=== PATIENT | male | born 1980 | race Hispanic/Latino ===

== ENCOUNTER 2017-03-27 08:24 | Emergency (ER) | payer MEDICARE ==
[2017-03-27] MEDS ORDERED: NACL 0.9% 1000 ML 1,000 ML IV ONE (08:43)
[2017-03-27 09:15] LABS: Eosinophils % (Auto) 5.4 % (0.0-4.3); Hematocrit 41.6 % (35.5-45.6); Hemoglobin 14.2 gm/dl (11.8-15.2); Mean Corpuscular HGB Conc 34 % (32-34); Mean Corpuscular Hemoglobin 32 pg (28-32); Mean Corpuscular Volume 95 fl (84-94); Platelet Count 268 K/mm3 (140-440); Red Blood Count 4.37 M/mm3 (3.65-5.03); Red Cell Distribution Width 13.3 % (13.2-15.2); White Blood Count 8.5 K/mm3 (4.5-11.0)
[2017-03-27 09:23] LABS: Anion Gap 20 mmol/L; BUN/Creatinine Ratio 33; Blood Urea Nitrogen 23 mg/dL (9-20); Calcium 8.6 mg/dL (8.4-10.2); Carbon Dioxide 20 mmol/L (22-30); Chloride 101.8 mmol/L (98-107); Glucose 118 mg/dL (75-100); Potassium 4.4 mmol/L (3.6-5.0); Sodium 137 mmol/L (137-145)
[2017-03-27 10:14] LABS: Bilirubin,Urine NEG (Negative); Blood,Urine NEG (Negative); Ketones,Urine NEG (Negative); Leukocyte Esterase,Urine NEG (Negative); Mucus,Urine FEW /HPF; Nitrite,Urine NEG (Negative); Protein,Urine <15 mg/dL mg/dL (Negative); Urobilinogen,Urine < 2.0 mg/dL (<2.0)
[2017-03-27 10:19] LABS: INR 0.91 (0.87-1.13)
[2017-03-27 10:20] LABS: Partial Thromboplastin Time 31.4 Sec. (24.2-36.6)
[2017-03-27] MEDS ORDERED: ZOFRAN IV ONE (11:17)
[2017-03-27] MEDS ORDERED: TYLENOL PO ONE (11:18)
[2017-03-27] MEDS ORDERED: CARAFATE PO ONE (11:18)
--- NOTE | 2017-03-27 11:18 | Emergency Department Report ---
ED General Adult HPI - General Chief complaint: Nausea/Vomiting/Diarrhea Stated complaint: FLU LIKE SYMPTOMS Time Seen by Provider: 03/27/17 11:06 Source: patient, RN notes reviewed Mode of arrival: Ambulatory Limitations: No Limitations - History of Present Illness Initial comments: This is a 36-year-old male. The patient is previously unknown to this provider , and he goes to the [facility]. Patient presents to the ER with 2 nights of coughing or vomiting of black liquid. He is not sure what it is. It is occasionally tinged with red. Patient denies bright red blood per rectum or melena. Patient admits to a little bit of abdominal discomfort. There is no chest pain. There is no shortness of breath. His symptoms are constant, they do not radiate anywhere, exacerbating or relieving factors. Contrary to what is documented in nursing notes, the patient did not complain of chest pain to me whatsoever. In addition, I do not recommend a rectal temperature. -: Gradual, days(s) Consistency: constant Improves with: none Worsens with: none Associated Symptoms: cough, fever/chills, loss of appetite, malaise, weakness. denies: confusion, chest pain, diaphoresis, shortness of breath - Related Data Home Medications Medication Instructions Recorded Confirmed Last Taken AtorvaSTATin [Lipitor] 10 mg PO QHS 03/27/17 03/27/17 03/27/17 Diphenhydramine HCl [Nighttime 50 mg PO QHS PRN 03/27/17 03/27/17 03/27/17 Sleep Aid 50MG] FLUoxetine HCL [Fluoxetine HCl] 40 mg PO QDAY 03/27/17 03/27/17 03/27/17 Gabapentin [Neurontin] 400 mg PO Q8HR 03/27/17 03/27/17 03/27/17 Ibuprofen 800 mg PO QDAY 03/27/17 03/27/17 03/27/17 Meloxicam 15 mg PO QDAY 03/27/17 03/27/17 03/27/17 Sherwood-3 Fatty Acids [Sherwood-3] 100 mg PO TID 03/27/17 03/27/17 03/27/17 Prazosin [Minipress] 1 mg PO TID 03/27/17 03/27/17 03/27/17 traZODone [Desyrel] 50 mg PO QHS 03/27/17 03/27/17 03/27/17 Previous Rx's Medication Instructions Recorded Last Taken Type Dicyclomine [Bentyl] 10 mg PO QID PRN #20 capsule 03/27/17 Unknown Rx Famotidine [Pepcid] 20 mg PO QDAY #30 tablet 03/27/17 Unknown Rx Ondansetron [Zofran Odt] 4 mg PO Q8HR PRN #20 tab.rapdis 03/27/17 Unknown Rx Allergies Allergy/AdvReac Type Severity Reaction Status Date / Time iodine AdvReac Hives Verified 03/27/17 08:33 ED Review of Systems ROS: Stated complaint: FLU LIKE SYMPTOMS Other details as noted in HPI Constitutional: malaise Eyes: denies: vision change ENT: denies: epistaxis Respiratory: denies: wheezing Cardiovascular: denies: chest pain Gastrointestinal: denies: melena, hematochezia Musculoskeletal: arthralgia, myalgia Neurological: weakness ED Past Medical Hx - Past Medical History Previous Medical History?: Yes - Surgical History Past Surgical History?: Yes Additional Surgical History: Left Hip, Right Hip, Right knee, Right arm/hand - Social History Smoking Status: Current Every Day Smoker Substance Use Type: Alcohol, Cocaine, Heroin, Marijuana, Non Opiate Pain, Prescribed, Tranquilizers, Methamphetamines, Other - Medications Home Medications: Home Medications Medication Instructions Recorded Confirmed Last Taken Type AtorvaSTATin [Lipitor] 10 mg PO QHS 03/27/17 03/27/17 03/27/17 History Dicyclomine [Bentyl] 10 mg PO QID PRN #20 capsule 03/27/17 Unknown Rx Diphenhydramine HCl [Nighttime 50 mg PO QHS PRN 03/27/17 03/27/17 03/27/17 History Sleep Aid 50MG] FLUoxetine HCL [Fluoxetine HCl] 40 mg PO QDAY 03/27/17 03/27/17 03/27/17 History Famotidine [Pepcid] 20 mg PO QDAY #30 tablet 03/27/17 Unknown Rx Gabapentin [Neurontin] 400 mg PO Q8HR 03/27/17 03/27/17 03/27/17 History Ibuprofen 800 mg PO QDAY 03/27/17 03/27/17 03/27/17 History Meloxicam 15 mg PO QDAY 03/27/17 03/27/1703/27/17 History Sherwood-3 Fatty Acids [Sherwood-3] 100 mg PO TID 03/27/17 03/27/17 03/27/17 History Ondansetron [Zofran Odt] 4 mg PO Q8HR PRN #20 tab.rapdis 03/27/17 Unknown Rx Prazosin [Minipress] 1 mg PO TID 03/27/17 03/27/17 03/27/17 History traZODone [Desyrel] 50 mg PO QHS 03/27/17 03/27/17 03/27/17 History ED Physical Exam - General Limitations: No Limitations General appearance: alert, anxious - Head Head exam: Present: atraumatic, normocephalic - Eye Eye exam: Present: normal appearance, EOMI. Absent: nystagmus - ENT ENT exam: Present: normal exam, normal orophraynx, mucous membranes moist, normal external ear exam - Neck Neck exam: Present: normal inspection, full ROM - Respiratory Respiratory exam: Present: normal lung sounds bilaterally. Absent: respiratory distress - Cardiovascular Cardiovascular Exam: Present: regular rate, normal rhythm, normal heart sounds. Absent: systolic murmur, diastolic murmur, rubs, gallop - GI/Abdominal GI/Abdominal exam: Present: soft, tenderness, normal bowel sounds. Absent: distended, guarding, rebound, rigid, pulsatile mass - Rectal Rectal exam: Present: normal inspection, normal rectal tone, heme (-) stool - Extremities Exam Extremities exam: Present: normal inspection, full ROM, normal capillary refill. Absent: pedal edema, joint swelling, calf tenderness - Back Exam Back exam: Present: normal inspection, full ROM. Absent: tenderness, CVA tenderness (R), paraspinal tenderness, vertebral tenderness - Neurological Exam Neurological exam: Present: alert, oriented X3, normal gait, other (Extraocular movements intact. Tongue midline. No facial droop. Facial sensation intact to light touch in the V1, V2, V3 distribution bilaterally. 5 and 5 strength in 4 extremities.. Sensation is intact to light touch in 4 extremities.). Absent : motor sensory deficit - Psychiatric Psychiatric exam: Present: normal affect, normal mood, anxious - Skin Skin exam: Present: warm, dry, intact, normal color. Absent: rash ED Course Vital Signs 03/27/17 03/27/17 03/27/17 08:28 11:46 11:47 Temperature 99.4 F 99.1 F Pulse Rate 104 H 84 Respiratory 22 20 20 Rate Blood Pressure 108/81 Blood Pressure 166/68 [Right] O2 Sat by Pulse 94 95 95 Oximetry ED Medical Decision Making - Lab Data Result diagrams: 03/27/17 08:39 03/27/17 08:39 Vital Signs 03/27/17 03/27/17 03/27/17 08:28 11:46 11:47 Temperature 99.4 F 99.1 F Pulse Rate 104 H 84 Respiratory 22 20 20 Rate Blood Pressure 108/81 Blood Pressure 166/68 [Right] O2 Sat by Pulse 94 95 95 Oximetry Lab Results 03/27/17 03/27/17 03/27/17 Range/Units 08:39 08:39 09:13 WBC 8.5 (4.5-11.0) K/mm3 RBC 4.37 (3.65-5.03) M/mm3 Hgb 14.2 (11.8-15.2) gm/dl Hct 41.6 (35.5-45.6) % MCV 95 H (84-94) fl MCH 32 (28-32) pg MCHC 34 (32-34) % RDW 13.3 (13.2-15.2) % Plt Count 268 (140-440) K/mm3 Lymph % (Auto) 16.0 (13.4-35.0) % Jay % (Auto) 9.4 H (0.0-7.3) % Eos % (Auto) 5.4 H (0.0-4.3) % Baso % (Auto) 1.0 (0.0-1.8) % Lymph # 1.4 (1.2-5.4) K/mm3 Jay # 0.8 (0.0-0.8) K/mm3 Eos # 0.5 H (0.0-0.4) K/mm3 Baso # 0.1 (0.0-0.1) K/mm3 Seg Neutrophils % 68.2 (40.0-70.0) % Seg Neutrophils # 5.8 (1.8-7.7) K/mm3 PT 12.7 (12.2-14.9) Sec. INR 0.91 (0.87-1.13) APTT 31.4 (24.2-36.6) Sec. Sodium 137 (137-145) mmol/L Potassium 4.4 (3.6-5.0) mmol/L Chloride 101.8 (98-107) mmol/L Carbon Dioxide 20 L (22-30) mmol/L Anion Gap 20 mmol/L BUN 23 H (9-20) mg/dL Creatinine 0.7 L (0.8-1.5) mg/dL Estimated GFR > 60 ml/min BUN/Creatinine Ratio 33 % Glucose 118 H (75-100) mg/dL Calcium 8.6 (8.4-10.2) mg/dL Lipase (13-60) units/L Urine Color (Yellow) Urine Turbidity (Clear) Urine pH (5.0-7.0) Ur Specific [place] (1.003-1.030) Urine Protein (Negative) mg/dL Urine Glucose (UA) (Negative) mg/dL Urine Ketones (Negative) mg/dL Urine Blood (Negative) Urine Nitrite (Negative) Urine Bilirubin (Negative) Urine Urobilinogen (<2.0) mg/dL Ur Leukocyte Esterase (Negative) Urine WBC (Auto) (0.0-6.0) /HPF Urine RBC (Auto) (0.0-6.0) /HPF Urine Mucus /HPF Blood Type Antibody Screen 03/27/17 03/27/17 03/27/17 Range/Units 09:13 09:13 09:59 WBC (4.5-11.0) K/mm3 RBC (3.65-5.03) M/mm3 Hgb (11.8-15.2) gm/dl Hct (35.5-45.6) % MCV (84-94) fl MCH (28-32) pg MCHC (32-34) % RDW (13.2-15.2) % Plt Count (140-440) K/mm3 Lymph % (Auto) (13.4-35.0) % Jay % (Auto) (0.0-7.3) % Eos % (Auto) (0.0-4.3) % Baso % (Auto) (0.0-1.8) % Lymph # (1.2-5.4) K/mm3 Jay # (0.0-0.8) K/mm3 Eos # (0.0-0.4) K/mm3 Baso # (0.0-0.1) K/mm3 Seg Neutrophils % (40.0-70.0) % Seg Neutrophils # (1.8-7.7) K/mm3 PT (12.2-14.9) Sec. INR (0.87-1.13) APTT (24.2-36.6) Sec. Sodium (137-145) mmol/L Potassium (3.6-5.0) mmol/L Chloride (98-107) mmol/L Carbon Dioxide (22-30) mmol/L Anion Gap mmol/L BUN (9-20) mg/dL Creatinine (0.8-1.5) mg/dL Estimated GFR ml/min BUN/Creatinine Ratio % Glucose (75-100) mg/dL Calcium (8.4-10.2) mg/dL Lipase 77 H (13-60) units/L Urine Color Yellow (Yellow) Urine Turbidity Clear (Clear) Urine pH 5.0 (5.0-7.0) Ur Specific [place] 1.026 (1.003-1.030) Urine Protein <15 mg/dl (Negative) mg/dL Urine Glucose (UA) Neg (Negative) mg/dL Urine Ketones Neg (Negative) mg/dL Urine Blood Neg (Negative) Urine Nitrite Neg (Negative) Urine Bilirubin Neg (Negative) Urine Urobilinogen < 2.0 (<2.0) mg/dL Ur Leukocyte Esterase Neg (Negative) Urine WBC (Auto) 1.0 (0.0-6.0) /HPF Urine RBC (Auto) 4.0 (0.0-6.0) /HPF Urine Mucus Few /HPF Blood Type A POSITIVE Antibody Screen Negative - EKG Data -: EKG Interpreted by Ny - EKG Data 03/27/17 14:52 Normal sinus, 88 bpm, normal intervals, normal axis, not morphologically consistent with ST elevation myocardial infarction - Radiology Data Radiology results: report reviewed, image reviewed X-ray the chest is negative CT scan of the abdomen and pelvis is negative for acute findings - Medical Decision Making Differential diagnosis, including but not limited to: Bronchitis, bronchiectasis , pneumonia, GI bleed, intra-abdominal infection Assessment and plan: 36-year-old male with a complaint of malaise, coughing or vomiting of black liquid, he is not sure if he is coughing or vomiting it up. To me, the patient does not endorse chest pain. His abdomen was minimally tender, with no rebound, guarding or peritoneal signs, he was found to be guaiac negative on rectal examination. Hemoglobin and hematocrit unremarkable, x-ray of the chest is negative. CT scan of the abdomen and pelvis negative, x-ray of the chest is negative as well. Patient is able to tolerate liquid feeds without difficulty, he does not appear to be an emergent condition at this time, the patient will be started on pain medication, nausea medication, he can follow up with outpatient gastroenterology. Return precautions are reviewed. Critical care attestation.: If time is entered above; I have spent that time in minutes in the direct care of this critically ill patient, excluding procedure time. ED Disposition Clinical Impression: General medical exam Disposition: DC-01 TO HOME OR SELFCARE Is pt being admited?: No Does the pt Need Aspirin: No Condition: Stable Instructions: Acute Nausea and Vomiting (ED) Additional Instructions: Take the medications as directed. Avoid consumption of alcohol, spicy foods, ibuprofen, Motrin, aspirin, Naprosyn, Aleve. Follow up with a health care legal assistant, stomach doctor within the next [address] Segura is a local stomach doctor. Continue your current outpatient medications, and follow- up with primary care doctor within the next month. Return to the ER right away with new pain, worsened pain, migration of pain, fevers, chills, lethargy, irritability, projectile vomiting, change in mental status, inability to tolerate liquid feeds, vomiting blood, defecating blood. Referrals: PRIMARY CARE, [Primary Care Provider] - 3-5 Days BEBO CACERES MD [Staff Physician] - 3-5 Days LALY SEGURA MD [Staff Physician] - 3-5 Days
[2017-03-27 11:47] VITALS: BP 166/68
[2017-03-27] MEDS ORDERED: PROTONIX IV ONE (12:00)
--- NOTE | 2017-03-27 12:38 | XRay Report ---
CHEST TWO VIEWS: 03/27/17 08:24:00 CLINICAL: Hematemesis or hemoptysis. COMPARISON: None FINDINGS: Normal heart and pulmonary vasculature. The lungs are normally expanded and clear. No pulmonary nodule or mass. No airspace disease or pleural effusion. Degenerative changes in the spine. IMPRESSION: No acute cardiopulmonary process and no pulmonary nodule or mass.
--- NOTE | 2017-03-27 14:16 | Cat Scan Report ---
CT of the abdomen and pelvis with IV contrast. History: Abdominal pain, nausea and vomiting. Findings: The liver, spleen, and pancreas are normal. A single calcified gallstone is noted. The wall of gallbladder is not thickened. There is no biliary dilatation. An isolated 7 mm calcification in the left kidney on initial nephrogram phase may be vascular. There is no hydronephrosis. 3 tiny subcentimeter cysts are seen in the left kidney. No right renal abnormalities are seen. There is no adenopathy within the retroperitoneum. No mesenteric inflammation or abnormal fluid collections are seen. The appendix is normal. A right hip prosthesis is noted. Impression: 1. Single gallstone with no evidence of cholecystitis. 2. Small left renal cysts. A single calcification the left kidney is probably vascular, but I cannot exclude a small intrarenal stone. There is no hydronephrosis.
== END 2017-03-27 15:15 | disposition home or self-care (01) ==
LOC: ED 08:24
DX: R05 Cough (principal); R11.10 Vomiting, unspecified; R10.9 Unspecified abdominal pain; F14.10 Cocaine abuse, uncomplicated; F12.10 Cannabis abuse, uncomplicated; F15.10 Other stimulant abuse, uncomplicated; F11.10 Opioid abuse, uncomplicated; F17.200 Nicotine dependence, unspecified, uncomplicated; Z88.8 Allergy status to other drugs, medicaments and biological substances
CPT/HCPCS: 36415; 71020; 74177; 80048; 81001; 82271; 83690; 85025; 85610; 85730; 86850; 86900; 86901; 93005; 93010; 96361; 96374; 96375; 99285; C9113; J2405; J7030; Q9967

== ENCOUNTER 2017-05-02 16:58 | Emergency (ER) | payer MEDICARE ==
[2017-05-02 17:08] VITALS: BP 122/78
--- NOTE | 2017-05-02 20:51 | Emergency Department Report ---
- General Chief complaint: Skin/Abscess/Foreign Body Stated complaint: KNOT IN GROIN Time Seen by Provider: 05/02/17 20:06 Source: patient Mode of arrival: Ambulatory Limitations: No Limitations - History of Present Illness Initial comments: This is a 36-year-old male nontoxic, well nourished in appearance, no acute signs of distress presents to the ED with c/o of left groin region swelling with drainage. Patient stated yesterday he noticed swelling to the region and this morning he saw purulent drainage. Patient denies any testicular pain, swelling, numbness, tingling, fever, chills, headache, stiff neck, nausea, vomiting, chest pain, shortness of breathe, abdominal pain or pelvic pain. Patient denies any trauma. States allergies to iodine. Patient denies significant PMH. MD complaint: abscess/boil Location: genitals Severity: mild Severity scale (0 -10): 8 Quality: aching Consistency: constant Improves with: none Worsens with: none Context: none Associated symptoms: denies other symptoms Treatments Prior to Arrival: none - Related Data Home Medications Medication Instructions Recorded Confirmed Last Taken AtorvaSTATin [Lipitor] 10 mg PO QHS 03/27/17 03/27/17 03/27/17 Diphenhydramine HCl [Nighttime 50 mg PO QHS PRN 03/27/17 03/27/17 03/27/17 Sleep Aid 50MG] FLUoxetine HCL [Fluoxetine HCl] 40 mg PO QDAY 03/27/17 03/27/17 03/27/17 Gabapentin [Neurontin] 400 mg PO Q8HR 03/27/17 03/27/17 03/27/17 Ibuprofen 800 mg PO QDAY 03/27/17 03/27/17 03/27/17 Meloxicam 15 mg PO QDAY 03/27/17 03/27/17 03/27/17 Coleman-3 Fatty Acids [Coleman-3] 100 mg PO TID 03/27/17 03/27/17 03/27/17 Prazosin [Minipress] 1 mg PO TID 03/27/17 03/27/17 03/27/17 traZODone [Desyrel] 50 mg PO QHS 03/27/17 03/27/17 03/27/17 Previous Rx's Medication Instructions Recorded Last Taken Type Dicyclomine [Bentyl] 10 mg PO QID PRN #20 capsule 03/27/17 Unknown Rx Famotidine [Pepcid] 20 mg PO QDAY #30 tablet 03/27/17 Unknown Rx Ondansetron [Zofran Odt] 4 mg PO Q8HR PRN #20 tab.rapdis 03/27/17 Unknown Rx Doxycycline [Vibramycin CAP] 100 mg PO Q12HR #14 capsule 05/02/17 Unknown Rx Ibuprofen [Motrin] 600 mg PO Q8H PRN #30 tablet 05/02/17 Unknown Rx Sulfamethoxazole/Trimethoprim 1 each PO BID #14 tablet 05/02/17 Unknown Rx [Bactrim DS TAB] Allergies Allergy/AdvReac Type Severity Reaction Status Date / Time iodine AdvReac Hives Verified 03/27/17 08:33 Abscess Boil HPI - HPI Chief Complaint: Skin/Abscess/Foreign Body Stated Complaint: KNOT IN GROIN Time Seen by Provider: 05/02/17 20:06 Home Medications: Home Medications Medication Instructions Recorded Confirmed Last Taken AtorvaSTATin [Lipitor] 10 mg PO QHS 03/27/17 03/27/17 03/27/17 Diphenhydramine HCl [Nighttime 50 mg PO QHS PRN 03/27/17 03/27/17 03/27/17 Sleep Aid 50MG] FLUoxetine HCL [Fluoxetine HCl] 40 mg PO QDAY 03/27/17 03/27/17 03/27/17 Gabapentin [Neurontin] 400 mg PO Q8HR 03/27/17 03/27/17 03/27/17 Ibuprofen 800 mg PO QDAY 03/27/17 03/27/17 03/27/17 Meloxicam 15 mg PO QDAY 03/27/17 03/27/17 03/27/17 Coleman-3 Fatty Acids [Coleman-3] 100 mg PO TID 03/27/17 03/27/17 03/27/17 Prazosin [Minipress] 1 mg PO TID 03/27/17 03/27/17 03/27/17 traZODone [Desyrel] 50 mg PO QHS 03/27/17 03/27/17 03/27/17 Previous Rx's Medication Instructions Recorded Last Taken Type Dicyclomine [Bentyl] 10 mg PO QID PRN #20 capsule 03/27/17 Unknown Rx Famotidine [Pepcid] 20 mg PO QDAY #30 tablet 03/27/17 Unknown Rx Ondansetron [Zofran Odt] 4 mg PO Q8HR PRN #20 tab.rapdis 03/27/17 Unknown Rx Doxycycline [Vibramycin CAP] 100 mg PO Q12HR #14 capsule 05/02/17 Unknown Rx Ibuprofen [Motrin] 600 mg PO Q8H PRN #30 tablet 05/02/17 Unknown Rx Sulfamethoxazole/Trimethoprim 1 each PO BID #14 tablet 05/02/17 Unknown Rx [Bactrim DS TAB] Allergies/Adverse Reactions: Allergies Allergy/AdvReac Type Severity Reaction Status Date / Time iodine AdvReac Hives Verified 03/27/17 08:33 ED Review of Systems ROS: Stated complaint: KNOT IN GROIN Other details as noted in HPI Constitutional: denies: chills, fever Eyes: denies: eye pain, eye discharge, vision change ENT: denies: ear pain, throat pain Respiratory: denies: cough, shortness of breath, wheezing Cardiovascular: denies: chest pain, palpitations Endocrine: no symptoms reported Gastrointestinal: denies: abdominal pain, nausea, diarrhea Genitourinary: denies: urgency, dysuria Musculoskeletal: denies: back pain, joint swelling, arthralgia Skin: denies: rash, lesions Neurological: denies: headache, weakness, paresthesias Psychiatric: denies: anxiety, depression Hematological/Lymphatic: denies: easy bleeding, easy bruising ED Past Medical Hx - Past Medical History Hx Psychiatric Treatment: Yes (depression) Additional medical history: elevated cholesterol,neuropathy - Surgical History Additional Surgical History: Left Hip, Right Hip, Right knee, Right arm/hand - Social History Smoking Status: Current Every Day Smoker Substance Use Type: None - Medications Home Medications: Home Medications Medication Instructions Recorded Confirmed Last Taken Type AtorvaSTATin [Lipitor] 10 mg PO QHS 03/27/17 03/27/17 03/27/17 History Dicyclomine [Bentyl] 10 mg PO QID PRN #20 capsule 03/27/17 Unknown Rx Diphenhydramine HCl [Nighttime 50 mg PO QHS PRN 03/27/17 03/27/17 03/27/17 History Sleep Aid 50MG] FLUoxetine HCL [Fluoxetine HCl] 40 mg PO QDAY 03/27/17 03/27/17 03/27/17 History Famotidine [Pepcid] 20 mg PO QDAY #30 tablet 03/27/17 Unknown Rx Gabapentin [Neurontin] 400 mg PO Q8HR 03/27/17 03/27/17 03/27/17 History Ibuprofen 800 mg PO QDAY 03/27/17 03/27/17 03/27/17 History Meloxicam 15 mg PO QDAY 03/27/17 03/27/17 03/27/17 History Coleman-3 Fatty Acids [Coleman-3] 100 mg PO TID 03/27/17 03/27/17 03/27/17 History Ondansetron [Zofran Odt] 4 mg PO Q8HR PRN #20 tab.rapdis 03/27/17 Unknown Rx Prazosin [Minipress] 1 mg PO TID 03/27/17 03/27/17 03/27/17 History traZODone [Desyrel] 50 mg PO QHS 03/27/17 03/27/17 03/27/17 History Doxycycline [Vibramycin CAP] 100 mg PO Q12HR #14 capsule 05/02/17 Unknown Rx Ibuprofen [Motrin] 600 mg PO Q8H PRN #30 tablet 05/02/17 Unknown Rx Sulfamethoxazole/Trimethoprim 1 each PO BID #14 tablet 05/02/17 Unknown Rx [Bactrim DS TAB] ED Physical Exam - General Limitations: No Limitations General appearance: alert, in no apparent distress - Head Head exam: Present: atraumatic, normocephalic - Eye Eye exam: Present: normal appearance - ENT ENT exam: Present: mucous membranes moist - Neck Neck exam: Present: normal inspection - Respiratory Respiratory exam: Present: normal lung sounds bilaterally. Absent: respiratory distress - Cardiovascular Cardiovascular Exam: Present: regular rate, normal rhythm. Absent: systolic murmur, diastolic murmur, rubs, gallop - GI/Abdominal GI/Abdominal exam: Present: soft, normal bowel sounds - Rectal Rectal exam: Present: deferred - exam: Present: normal inspection, other (Left groin region nodular swelling with draiange. No induration or flutance noted. ). Absent: testicular tenderness, urethral discharge, scrotal swelling, vertical testicular lie External exam: Present: normal external exam. Absent: erythema, swelling, lesions, lacerations, ecchymosis, bleeding - Extremities Exam Extremities exam: Present: normal inspection - Back Exam Back exam: Present: normal inspection - Neurological Exam Neurological exam: Present: alert, oriented X3 - Psychiatric Psychiatric exam: Present: normal affect, normal mood - Skin Skin exam: Present: warm, dry, intact, normal color. Absent: rash ED Course Vital Signs 05/02/17 17:04 Temperature 98 F Pulse Rate 77 Respiratory 18 Rate Blood Pressure 122/78 O2 Sat by Pulse 97 Oximetry - Reevaluation(s) Reevaluation #1: 05/02/17 20:52 Patient is speaking in full sentences with no signs of distress noted. ED Medical Decision Making - Medical Decision Making this is a 36-year-old male that presents with nodular abscess that is draining purulent. Patient is stable and was examined me. A Doppler ultrasound of testicular region has been obtained and the radiologist. Patient is discharged with Bactrim and Doxy. Patient was instructed to observe symptoms of increased swelling as this indication of any abscess formation and is to be drained. Patient was instructed to proper wound care. Patient was referred to urology. At time time of discharge, the patient does not seem toxic or ill in appearance. No acute signs of distress noted. Patient agrees to discharge treatment plan of care. No further questions noted by the patient. Critical care attestation.: If time is entered above; I have spent that time in minutes in the direct care of this critically ill patient, excluding procedure time. ED Disposition Clinical Impression: Abscess Hydrocele Qualifiers: Hydrocele type: infected Qualified Code(s): N43.1 - Infected hydrocele Disposition: DC- TO HOME OR SELFCARE Is pt being admited?: No Does the pt Need Aspirin: No Condition: Stable Instructions: Sulfamethoxazole/Trimethoprim (By mouth), Ibuprofen (By mouth), Hydrocele (ED) Additional Instructions: Follow-up with a primary care doctor/Urology in 3-5 days or if symptoms worsen and continue return to emergency room as soon as possible. Observe of symptoms worsen and increased swelling as this is an indication for incision and drainage procedure. Prescriptions: Doxycycline [Vibramycin CAP] 100 mg PO Q12HR #14 capsule Ibuprofen [Motrin] 600 mg PO Q8H PRN #30 tablet PRN Reason: Pain Sulfamethoxazole/Trimethoprim [Bactrim DS TAB] 1 each PO BID #14 tablet Referrals: BERNIE MANN MD [Primary Care Provider] - 3-5 Days SAGRARIO BENAVIDES MD [Staff Physician] - 3-5 Days VIVIANA GIFFORD MD [Staff Physician] - 3-5 Days [facility] [Outside] - 3-5 Days [facility] [Outside] - 3-5 Days DEE DEE HERNANDEZ MD [Referring] - 3-5 Days Forms: Work/School Release Form(ED)
--- NOTE | 2017-05-02 22:49 | Ultrasound Report ---
FINAL REPORT PROCEDURE: US TESTICULAR DOPPLER COMP TECHNIQUE: Real-time adam-scale and color flow Doppler sonography in multiple planes of the scrotum, testicles, and epididymes was performed. Velocity spectral waveform analysis Doppler imaging of the arterial inflow and venous outflow of the testicles was performed with image documentation. CPT 35619 and 53216 HISTORY: swelling and pain COMPARISON: No prior studies are available for comparison. FINDINGS: RIGHT TESTICLE: Size: 4.2 x 3.2 x 3.9 cm . Appearance: Normal size and echotexture . Arterial blood flow: Normal spectral waveforms, flow velocities and color flow images.. Venous blood flow: Normal spectral waveforms and color flow images. Right epididymis: Normal size and echotexture . Hydrocele: None . There is a hypoechoic mass inferior to the right testicle measuring 8 x 14 x 15 millimeters. LEFT TESTICLE Size: 4.7 x 2.9 x 3.5 cm . Appearance: Normal size and echotexture . Arterial blood flow: Normal spectral waveforms, flow velocities and color flow images.. Venous blood flow: Normal spectral waveforms and color flow images. Leftepididymis: Normal size and echotexture . Hydrocele: None . There is a hypoechoic mass inferior to the left testicle measuring 7 x 14 x 13 millimeters. There is soft tissue swelling measuring 3.9 x 1.2 x 2.6 centimeters in the left hemiscrotum suggesting infection. There is no discrete abscess. IMPRESSION: There is no testicular torsion. There is no intra testicular lesion. There are bilateral extratesticular masses which could be phlegmon. There is a hypoechoic mass inferior to the left testicle measuring 7 x 14 x 13 millimeters. There is soft tissue swelling measuring 3.9 x 1.2 x 2.6 centimeters in the left hemiscrotum suggesting infection. There is no discrete abscess.
[2017-05-02] MEDS ORDERED: ZITHROMAX PO ONE (22:50)
[2017-05-02] MEDS ORDERED: XYLOCAINE 1% MPF 5 mL INFILTRATI ONE (22:50)
[2017-05-02] MEDS ORDERED: ROCEPHIN IM ONE (22:50)
== END 2017-05-02 23:45 | disposition home or self-care (01) ==
LOC: ED 16:58
DX: N43.1 Infected hydrocele (principal); L02.211 Cutaneous abscess of abdominal wall; F17.200 Nicotine dependence, unspecified, uncomplicated
CPT/HCPCS: 93975; 96372; 99283; J0696

== ENCOUNTER 2020-05-31 13:13 | Emergency (ER) | payer MEDICARE ==
[2020-05-31 13:21] VITALS: BP 122/80
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
[2020-05-31] MEDS ORDERED: LIDOCAINE (2%) 20 MG/1 ML VIAL 20 ML MDV INFILTRATI STA (14:22)
== END 2020-05-31 14:25 | disposition home or self-care (01) ==
LOC: ED 13:13
DX: M54.2 Cervicalgia (principal); M54.6 Pain in thoracic spine; F32.9 Major depressive disorder, single episode, unspecified; Z98.890 Other specified postprocedural states; F17.200 Nicotine dependence, unspecified, uncomplicated; Z79.1 Long term (current) use of non-steroidal anti-inflammatories (NSAID); Z79.899 Other long term (current) drug therapy; Z88.8 Allergy status to other drugs, medicaments and biological substances
CPT/HCPCS: 99282

== ENCOUNTER 2020-11-11 05:07 | Emergency (ER) | payer MEDICARE ==
--- NOTE | 2020-11-11 10:05 | Emergency Department Report ---
ED Upper Extremity Inj HPI - General Chief Complaint: Extremity Injury, Upper Stated Complaint: RT HAND SWELLING Time Seen by Provider: 11/11/20 10:03 Source: patient Mode of arrival: Ambulatory Limitations: No Limitations - History of Present Illness Initial Comments: Patient is a pleasant 40-year-old who woke up with right hand swelling this morning. He states that his hand looked fine when he went to bed but when he woke up this morning it was red and swollen. He denies a history of gout. He denies any trauma to the hand. He denies having seen any insect or animals that would have bit him. I do not see a site of a bite or any open skin suggesting trauma. Patient has full range of motion is neurovascularly intact. MD Complaint: Injury to:: right -: Sudden Handedness: right Place: home Improves With: none Worsens With: none Associated Symptoms: denies other symptoms - Related Data Home Medications Medication Instructions Recorded Confirmed Last Taken AtorvaSTATin 10 mg PO QHS 03/27/17 03/27/17 03/27/17 FLUoxetine HCL [Fluoxetine HCl] 40 mg PO QDAY 03/27/17 03/27/17 03/27/17 Gabapentin 400 mg PO Q8HR 03/27/17 03/27/17 03/27/17 [place]-3 Fatty Acids [[place]-3] 100 mg PO TID 03/27/17 03/27/17 03/27/17 Previous Rx's Medication Instructions Recorded Last Taken Type cephALEXin [Keflex] 500 mg PO Q12HR #20 cap 11/11/20 Unknown Rx Allergies Allergy/AdvReac Type Severity Reaction Status Date / Time iodine AdvReac Hives Verified 03/27/17 08:33 ED Review of Systems ROS: Stated complaint: RT HAND SWELLING Other details as noted in HPI Comment: All other systems reviewed and negative ED Past Medical Hx - Past Medical History Previous Medical History?: Yes Hx Hypertension: No Hx Heart Attack/AMI: No Hx Psychiatric Treatment: Yes (depression) Hx Asthma: No Additional medical history: elevated cholesterol,neuropathy - Surgical History Past Surgical History?: Yes Hx Pacemaker: No Hx Internal Defibrillator: No Additional Surgical History: Left Hip, Right Hip, Right knee, Right arm/hand - Family History Family history: no significant - Social History Smoking Status: Current Every Day Smoker Substance Use Type: None - Medications Home Medications: Home Medications Medication Instructions Recorded Confirmed Last Taken Type AtorvaSTATin 10 mg PO QHS 03/27/17 03/27/17 03/27/17 History FLUoxetine HCL [Fluoxetine HCl] 40 mg PO QDAY 03/27/17 03/27/17 03/27/17 History Gabapentin 400 mg PO Q8HR 03/27/17 03/27/17 03/27/17 History [place]-3 Fatty Acids [[place]-3] 100 mg PO TID 03/27/17 03/27/17 03/27/17 History cephALEXin [Keflex] 500 mg PO Q12HR #20 cap 11/11/20 Unknown Rx ED Physical Exam - General Limitations: No Limitations General appearance: alert, in no apparent distress - Head Head exam: Present: atraumatic, normocephalic - Eye Eye exam: Present: normal appearance - ENT ENT exam: Present: mucous membranes moist - Neck Neck exam: Present: normal inspection - Respiratory Respiratory exam: Present: normal lung sounds bilaterally. Absent: respiratory distress - Cardiovascular Cardiovascular Exam: Present: regular rate, normal rhythm. Absent: systolic murmur, diastolic murmur, rubs, gallop - GI/Abdominal GI/Abdominal exam: Present: soft, normal bowel sounds - Rectal Rectal exam: Present: deferred - Extremities Exam Extremities exam: Present: normal inspection - Expanded Upper Extremity Exam Right Forearm Wrist exam: Present: normal inspection Hand Wrist exam: Present: swelling Hand L/R Back: 1 - swelling Vascular: Present: normal capillary refill - Back Exam Back exam: Present: normal inspection - Neurological Exam Neurological exam: Present: alert, oriented X3 - Psychiatric Psychiatric exam: Present: normal affect, normal mood - Skin Skin exam: Present: warm, dry, intact, normal color. Absent: rash ED Course Vital Signs 11/11/20 11/11/20 11/11/20 05:15 11:04 11:47 Temperature 98.0 F Pulse Rate 104 H 90 Respiratory 18 16 16 Rate Blood Pressure 132/78 Blood Pressure 132/88 [Left] O2 Sat by Pulse 95 100 Oximetry ED Medical Decision Making - Radiology Data Radiology results: report reviewed, image reviewed nap - Medical Decision Making x ray noted neurovasc intact Hand is red and swollen. There is no flatulence suggesting an abscess. There is no injection/stinger/bite area. There is rapid cap refill. Ulnar and radial pulses are strong. Patient has full range of motion. Patient being treated for cellulitis of the hand. Pain is not consistent with that of gout. Patient is ambulatory, nontoxic and [id number] on exam. Heart rate as taken by the provider 88. Patient being discharged home with discharge plan of care including medications and PCP follow-up. Patient verbalizes understanding of his discharge plan of care. Vital Signs 11/11/20 05:15 Temperature 98.0 F Pulse Rate 104 H Respiratory 18 Rate Blood Pressure 132/78 O2 Sat by Pulse 95 Oximetry - Differential Diagnosis ro fx/ cellulitus/ insect bite Critical care attestation.: If time is entered above; I have spent that time in minutes in the direct care of this critically ill patient, excluding procedure time. ED Disposition Clinical Impression: Cellulitis of hand Disposition: DC-01 TO HOME OR SELFCARE Is pt being admited?: No Does the pt Need Aspirin: No Condition: Stable Instructions: Cellulitis, Adult Additional Instructions: med as ordered today keep hand elevated ice pack to hand today and then warm compresses motrin or tylenol for pain follow up with pcp next week referral below Prescriptions: cephALEXin [Keflex] 500 mg PO Q12HR #20 cap Referrals: DONNA JACOBS MD [Staff Physician] - 3-5 Days Time of Disposition: 10:43
[2020-11-11] MEDS ORDERED: cephALEXin 500 MG CAP PO ONE (10:43)
[2020-11-11] MEDS ORDERED: IBUPROFEN 800 MG TAB PO ONE (10:43)
--- NOTE | 2020-11-11 10:52 | XRay Report ---
RIGHT HAND 3 VIEWS INDICATION: swelling. COMPARISON: None. IMPRESSION: Normal bone mineralization. There is mild nonspecific soft tissue swelling on the dorsum of the hand. No acute osseous abnormality or significant joint pathology is appreciated. Signer Name: Juanpablo Rojas Jr, MD Signed: 11/11/2020 10:48 AM Workstation Name: [id number]
[2020-11-11 11:49] VITALS: BP 132/88
== END 2020-11-11 11:47 | disposition home or self-care (01) ==
LOC: ED 05:07
DX: L03.113 Cellulitis of right upper limb (principal); F32.9 Major depressive disorder, single episode, unspecified; F17.200 Nicotine dependence, unspecified, uncomplicated; Z98.890 Other specified postprocedural states; Z79.899 Other long term (current) drug therapy; Z88.8 Allergy status to other drugs, medicaments and biological substances